=== PATIENT | female | born 1985 | race Caucasian/White ===

== ENCOUNTER 2025-01-19 22:29 | Observation (INO) ==
--- NOTE | 2025-01-19 22:50 | DR.WEAKNES ---
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 PATIENT LAST SEEN NORMAL WAS 40 MINS AGO. PATIENT WENT AND TOOK A SHOWER. AFTER SHE GOT OUT OF THE SHOWER STATES PATIENT'S HANDS BEGAN TO DRAWL UP AND HER SPEECH IS VERY DELAYED. PATIENT HAD A CVA APPROX 4 MONTHS AGO PER . Source History Provided: Family Member Mode of Arrival Mode of Arrival: In Arms Timing Onset of Chief Complaint: 01/19/25 Symptom Onset: Known Context Stroke Symptoms: Ataxia, Weakness of limb and Slurring PMH PMH Past Medical History: Yes Past Medical History: CVA and Hypertension Past Surgical History: Yes Surgical History: PIE BAKER Surgery Family History History of Family Medical Conditions: Yes Family Medical History: IN and Hypertension Social History Does patient currently use any type of tobacco product: Yes Have you used tobacco products in the last 12 months: Yes Type of Tobacco Use: Cigarettes Does any household member use tobacco: Yes Alcohol Use: Occasionally Do you use any recreational Drugs:: No Lives With: Spouse Lives Where: Home Travel Risk Coronavirus risk:travel/contact w/high risk person: No Has patient experienced Coronavirus symptoms: No Infectious screening In the last 2 months have you had wt loss of >10#?: NO Have you had fever, night sweats or hemotysis?: No Have you traveled outside the country in the last 6 months?: No Isolation: Standard ROS Review of Systems Constitutional: No Symptoms Reported Eyes: No Symptoms Reported ENTM: No Symptoms Reported Respiratoy: No Symptoms Reported Cardiovascular: No Symptoms Reported Gastrointestinal/Abdominal: No Symptoms Reported Genitourinary: No Symptoms Reported Neurological: See HPI and Weakness; negative Numbness, Paresthesia or Seizure Musculoskeletal: No Symptoms Reported Integumentary: No Symptoms Reported Hematologic/Lymphatic: No Symptoms Reported Endocrine: No Symptoms Reported Psychiatric: No Symptoms Reported Unable to Obtain Due To: Medical urgency (most info obtained from d/t pt's somnolence) PE Vital Signs Vitals: Vital Signs Temperature 97.8 F Pulse Rate 83 Pulse Rate 82 Pulse Rate 80 Pulse Rate 80 Pulse Rate 84 Pulse Rate 83 Pulse Rate 90 Pulse Rate 85 Pulse Rate 93 Pulse Rate 80 Pulse Rate 100 Respiratory Rate 22 Respiratory Rate 22 Respiratory Rate 22 Respiratory Rate 20 Respiratory Rate 28 Respiratory Rate 24 Respiratory Rate 22 Respiratory Rate 19 Respiratory Rate 22 Respiratory Rate 19 Respiratory Rate 22 Blood Pressure 139/86 Blood Pressure 137/82 Blood Pressure 134/74 Blood Pressure 155/88 Blood Pressure 143/87 Blood Pressure 186/94 O2 Sat by Pulse Oximetry 98 O2 Sat by Pulse Oximetry 98 O2 Sat by Pulse Oximetry 98 O2 Sat by Pulse Oximetry 100 O2 Sat by Pulse Oximetry 100 O2 Sat by Pulse Oximetry 100 O2 Sat by Pulse Oximetry 99 O2 Sat by Pulse Oximetry 100 O2 Sat by Pulse Oximetry 100 O2 Sat by Pulse Oximetry 99 O2 Sat by Pulse Oximetry 97 General Limitations: No Limitations General Appearance: Alert and In No Apparent Distress Head Head Exam: Normal Inspection Neck Neck Exam: Normal Inspection Chest Chest Inspection: Normal Inspection Respiratory Respiratory Exam: Normal Lung Sounds Bilat Respiratory Exam: Bilateral: Clear to Auscultation Cardiovascular Cardiovascular Exam: Regular Rate and Normal Rhythm Abdominal Exam Abdominal Exam: Normal Inspection, Normal Bowel Sounds and Soft Extremities Extremities Exam: Normal Inspection Back Back Exam: Normal Inspection Neurologic Speech: Other (dysarthria) Psychiatric Psychiatric Exam: Other (somnolent) Skin Skin Exam: Warm, Dry, Intact and Normal Color COURSE Consultation Call Returned: 01:02 (Dr Fitch accepts admission.) Critical Care Notes Total Time (mins): 30 Critical Diagnosis: dysarthria lt sided weakness hypokalemia hypomagnesemia Critical Interventions: stroke alert replacement of potassium and magnesium d/w family and tele-neurologist d/w admitting physician ROR Labs Reviewed Laboratory Results Reviewed?: Yes 01/19/25 22:57 01/19/25 22:57 Laboratory: WBC 8.5 X10^3/uL (3.6-10.0) 01/19/25 22:57 RBC 3.33 X10^6/uL (3.5-5.4) L 01/19/25 22:57 Hgb 11.2 g/dL (12.0-16.0) L 01/19/25 22:57 Hct 32.4 % (36.0-47.0) L 01/19/25 22:57 MCV 97.2 fL (80.0-100.0) 01/19/25 22:57 MCH 33.6 pg (27.0-34.0) 01/19/25 22:57 MCHC 34.6 g/dL (33.0-35.0) 01/19/25 22:57 RDW 28.6 % (11.6-16.5) H 01/19/25 22:57 Plt Count 479 X10^3/uL (150.0-450.0) H 01/19/25 22:57 Plt Count Comment Increased (ADEQUATE) A 01/19/25 22: MPV 7.4 fL (7.4-11.0) 01/19/25 22:57 Neut % (Auto) 74.5 % (42.0-75.0) 01/19/25 22:57 Lymph % (Auto) 17.3 % (21.0-51.0) L 01/19/25 22:57 [place] % (Auto) 6.6 % (0.0-13.0) 01/19/25 22:57 Eos % (Auto) 0.8 % (0.9-2.9) L 01/19/25 22:57 Baso % (Auto) 0.8 % (0.2-1.0) 01/19/25 22:57 Neut # (Auto) 6.3 x10^3/uL (2.2-4.8) H 01/19/25 22:57 Lymph # (Auto) 1.5 X10^3/uL (1.3-2.9) 01/19/25 22:57 [place] # (Auto) 0.6 x10^3/uL (0.3-0.8) 01/19/25 22:57 Eos # (Auto) 0.1 x10^3/uL (0.0-0.2) 01/19/25 22:57 Baso # (Auto) 0.1 X10^3/uL (0.0-0.1) 01/19/25 22:57 Absolute Nucleated RBC 0.4 /100WBC 01/19/25 22:57 Plt Morphology Comment Normal (NORMAL) 01/19/25 22:57 RBC Morphology Abnormal (NORMAL) A 01/19/25 22:57 Dimorphic RBCs Present 01/19/25 22:57 Anisocytosis 3+ A 01/19/25 22:57 Target Cells Present 01/19/25 22:57 Tear Drop Cells Present 01/19/25 22:57 Stomatocytes Present 01/19/25 22:57 Schistocytes Present 01/19/25 22:57 PT 12.2 SECONDS (11.8-14.3) 01/19/25 22:57 INR Target Range - 01/19/25 22:57 INR 0.89 (0.8-1.3) 01/19/25 22:57 APTT 25.4 SECONDS (22.9-36.5) 01/19/25 22:57 PTT Comment - 01/19/25 22:57 Fibrinogen 243 mg/dL (239-489) 01/19/25 22:57 Sodium 144 mmol/L (136-145) 01/19/25 22:57 Corrected Sodium TNP 01/19/25 22:57 Potassium 2.0 mmol/L (3.5-5.1) L* 01/19/25 22:57 Chloride 99 mmol/L (98-107) 01/19/25 22:57 Carbon Dioxide 31.2 mmol/L (21-32) 01/19/25 22:57 BUN 5 mg/dL (7-18) L 01/19/25 22:57 Creatinine 0.58 mg/dL (0.55-1.02) 01/19/25 22:57 Est GFR (MDRD) Af Amer > 60 (>60) 01/19/25 22:57 Est GFR (MDRD) Non-Af > 60 (>60) 01/19/25 22:57 Glucose 95 mg/dL (65-99) 01/19/25 22:57 POC Glucose (mg/dL) 106 mg/dL (65-99) H 01/19/25 23:27 Calcium 7.3 mg/dL (8.5-10.1) L 01/19/25 22:57 Corrected Calcium 8.0 mg/dL (8.5-10.1) L 01/19/25 22:57 Magnesium 1.3 mg/dL (2.0-2.9) L 01/19/25 22:57 Total Bilirubin 0.70 mg/dL (0.2-1.0) 01/19/25 22:57 AST 53 Units/L (15-37) H 01/19/25 22:57 ALT 15 Units/L (12-78) 01/19/25 22:57 Alkaline Phosphatase 169 Units/L (46-116) H 01/19/25 22:57 Creatine Kinase 84 Units/L (26-192) 01/19/25 22:57 Troponin I High Sens 17.3 ng/L (4.0-60.0) 01/19/25 22:57 Total Protein 6.2 g/dL (6.4-8.2) L 01/19/25 22:57 Albumin 3.1 g/dL (3.4-5.0) L 01/19/25 22:57 Globulin 3.1 g/dL (2.5-4.5) 01/19/25 22:57 Albumin/Globulin Ratio 1.0 Ratio (1.1-2.1) L 01/19/25 22:57 Triglycerides 155 mg/dL (0-150) H 01/19/25 22:57 Cholesterol 183 mg/dL (0-200) 01/19/25 22:57 LDL Cholesterol, Calc 37 mg/dL (0-100) 01/19/25 22:57 HDL Cholesterol 115 mg/dL (40-60) H 01/19/25 22:57 Cholesterol/HDL Ratio 1.6 (0.0-5.0) 01/19/25 22:57 Specimen Type Clean catch urine 01/19/25 23:44 Urine Color Straw (YELLOW) 01/19/25 23:44 Urine Appearance Clear (CLEAR) 01/19/25 23:44 Urine pH 7.0 (5.0 - 8.0) 01/19/25 23:44 Ur Specific [place] 1.005 (1.000-1.030) 01/19/25 23:44 Urine Protein 1+ (NEGATIVE) 01/19/25 23:44 Urine Glucose (UA) Negative (NEGATIVE) 01/19/25 23:44 Urine Ketones Negative (NEGATIVE) 01/19/25 23:44 Urine Blood Negative (NEGATIVE) 01/19/25 23:44 Urine Nitrite Negative (NEGATIVE) 01/19/25 23:44 Urine Bilirubin Negative (NEGATIVE) 01/19/25 23:44 Urine Urobilinogen Normal (NORMAL) 01/19/25 23:44 Ur Leukocyte Esterase Negative (NEGATIVE) 01/19/25 23:44 Urine RBC None seen /HPF (0-3) 01/19/25 23:44 Urine WBC 0-2 /HPF (0-5) 01/19/25 23:44 Ur Squamous Epith Cells Few /HPF (NEGATIVE) 01/19/25 23:44 Urine Bacteria Negative /HPF (NEGATIVE) 01/19/25 23:44 Ur Culture Indicated? No/not indicated 01/19/25 23:44 Urine Opiates Screen Negative (NEG=<300) 01/19/25 23:44 Urine Methadone Screen Negative (NEG=<300) 01/19/25 23:44 Ur Barbiturates Screen Negative (NEG=<200) 01/19/25 23:44 Ur Phencyclidine Scrn Negative (NEG=<25) 01/19/25 23:44 Ur Amphetamines Screen Negative (NEG=<1000) 01/19/25 23:44 U Benzodiazepines Scrn Negative (NEG=<200) 01/19/25 23:44 Urine Cocaine Screen Negative (NEG=<300) 01/19/25 23:44 U Marijuana (THC) Screen Negative (NEG=<50) 01/19/25 23:44 Ethyl Alcohol mg/dL 132 mg/dL (0-19.9) H 01/19/25 23:05 Blood Type O POSITIVE 01/19/25 22:57 Antibody Screen Negative 01/19/25 22:57 XRAY XRAY Interpreted by: Radiologist and Self X-ray Results: ct brain w/o: No acute intracranial abnormality identified. pcxr: no acute change Opioid Opioid Risk Tool Age (Tonio box if 16-45): Yes History of Preadolescent Sexual Abuse: No Total: 1 Total Score Risk Category: Low Risk Copyright: Jassi BROWN predicting aberrant behaviors Discharge Plan Diagnosis Discharge Problem: Hypokalemia, Hypomagnesemia, Left-sided weakness, Dysarthria, History of CVA (cerebrovascular accident) Alcohol intoxication Qualifiers: Complication of substance-induced condition: uncomplicated Qualified Code(s): F10.920 - Alcohol use, unspecified with intoxication, uncomplicated Discharge Plan Patient Disposition: 09 ADMITTED INPATIENT Condition: Stable
--- NOTE | 2025-01-19 23:00 | CT ---
EXAM: BRAIN W/O CON HISTORY: AFTER SHE GOT OUT OF THE SHOWER STATES PATIENT'S HANDS BEGAN TO DRAWL UP AND HER SPEECH IS VE RY DELAYED. PATIENT HAD A CVA APPROX 4 MONTHS AGO PER .; COMPARISON: July 17, 2024 TECHNIQUE: Axial non-contrast images of the head with coronal and sagittal reformats. Radiation dose: 799.04 mGy-cm total DLP FINDINGS: No abnormal areas of acute attenuation in the brain parenchyma. Small bands of encephalomalacia in the mid left centrum semiovale in the left posterior parietal lobe . Anglin-white differentiation remains intact. No intracranial, extra-axial, fluid collection. No hemorrhage. No mass, mass effect or midline shift. No ventriculomegaly. No acute fracture. Sinuses are well aerated. Mastoid air cells are well aerated. Globes and intraorbital contents are unremarkable. IMPRESSION: No acute intracranial abnormality identified. THIS IS AN ELECTRONICALLY VERIFIED FINAL REPORT 01/19/2025 10:56 PM - Electronically signed by Barrett Almanzar MD
[2025-01-19 23:17] LABS: BASOPHILS # (AUTO) 0.1 X10^3/uL (0.0-0.1); WHITE BLOOD COUNT 8.5 X10^3/uL (3.6-10.0)
[2025-01-19 23:20] LABS: BASOPHILS % (AUTO) 0.8 % (0.2-1.0); EOSINOPHILS # (AUTO) 0.1 x10^3/uL (0.0-0.2); EOSINOPHILS % (AUTO) 0.8 % (0.9-2.9); HEMATOCRIT 32.4 % (36.0-47.0); HEMOGLOBIN 11.2 g/dL (12.0-16.0); LYMPHOCYTES # (AUTO) 1.5 X10^3/uL (1.3-2.9); LYMPHOCYTES % (AUTO) 17.3 % (21.0-51.0); MEAN CORPUSCULAR HEMOGLOBIN 33.6 pg (27.0-34.0); MEAN CORPUSCULAR HGB CONC 34.6 g/dL (33.0-35.0); MEAN CORPUSCULAR VOLUME 97.2 fL (80.0-100.0); MEAN PLATELET VOLUME 7.4 fL (7.4-11.0); MONOCYTES # (AUTO) 0.6 x10^3/uL (0.3-0.8); MONOCYTES % (AUTO) 6.6 % (0.0-13.0); NEUTROPHILS # (AUTO) 6.3 x10^3/uL (2.2-4.8); NEUTROPHILS % (AUTO) 74.5 % (42.0-75.0); PLATELET COUNT 479 X10^3/uL (150.0-450.0); RED BLOOD COUNT 3.33 X10^6/uL (3.5-5.4); RED CELL DISTRIBUTION WIDTH 28.6 % (11.6-16.5)
[2025-01-19 23:21] LABS: INR 0.89 (0.8-1.3)
[2025-01-19 23:26] LABS: ALANINE AMINOTRANSFERASE 15 Units/L (12-78); ALBUMIN 3.1 g/dL (3.4-5.0); ALKALINE PHOSPHATASE 169 Units/L (46-116); ASPARTATE AMINO TRANSFERASE 53 Units/L (15-37); BLOOD UREA NITROGEN 5 mg/dL (7-18); CALCIUM 7.3 mg/dL (8.5-10.1); CARBON DIOXIDE 31.2 mmol/L (21-32); CHLORIDE 99 mmol/L (98-107); CHOL/HDL RATIO 1.6 (0.0-5.0); CHOLESTEROL 183 mg/dL (0-200); CREATINE KINASE 84 Units/L (26-192); CREATININE 0.58 mg/dL (0.55-1.02); GLUCOSE 95 mg/dL (65-99); HDL CHOLESTEROL 115 mg/dL (40-60); SODIUM 144 mmol/L (136-145); TOTAL PROTEIN 6.2 g/dL (6.4-8.2); TRIGLYCERIDES 155 mg/dL (0-150); eGFR NON BLACK RACES > 60 (>60)
--- NOTE | 2025-01-19 23:29 | EKG ---
Test Reason : possible stroke Blood Pressure : */* mmHG Vent. Rate : 87 BPM Atrial Rate : 87 BPM P-R Int : 140 ms QRS Dur : 96 ms QT Int : 426 ms P-R-T Axes : 73 10 59 degrees QTc Int : 512 ms Sinus rhythm with premature atrial complexes with aberrant conduction Nonspecific ST and T wave abnormality Prolonged QT Abnormal ECG When compared with ECG of 17-JUL-2024 14:36, Criteria for Septal infarct are no longer present ST now depressed in Lateral leads QT has lengthened Confirmed by Felix Valverde MD ([id number]) on 01/20/2025 7:29:54 AM Referred By: Confirmed By: Felix Valverde MD
[2025-01-19 23:41] LABS: PLATELET MORPHOLOGY COMMENT NORMAL (NORMAL)
[2025-01-19 23:42] LABS: ANISOCYTOSIS 3+; SCHISTOCYTES PRESENT; STOMATOCYTES PRESENT; TARGET CELLS PRESENT; TEAR DROP CELLS PRESENT
--- NOTE | 2025-01-19 23:45 | TELESTROKE ---
[facility] Consult Date of Consult Date of Exam: 01/19/25 Time of Arrival to the ED: 22:29 Allergies Allergies Allergy/AdvReac Type Severity Reaction Status Date / Time erythromycin base Allergy Verified 07/17/24 14:22 Penicillins Allergy Verified 07/17/24 14:22 Vital Signs Vital Signs: Temp Pulse Resp BP Pulse Ox O2 Del Method 01/19/25 23:30 143/87 01/19/25 23:30 85 19 100 01/19/25 23:15 93 H 22 100 01/19/25 23:01 80 19 99 01/19/25 22:29 97.8 F 100 H 22 186/94 97 Room Air History of Present Illness History of Present Illness: [facility] Patient Name:denton rosenbaum Date of :1985 Identification Number: Date of Service:01/19/2025 22:42:17 Diagnosis:R47.89 - Other speech disturbances Impression: Denton Rosenbaum is a 39 y/o F with a PMHx of HTN, tobacco use, stroke 07/19 who presents with b/l hand weakness and difficulty speaking. Differential is broad at this point and includes stroke, toxic/metabolic/infectious etiology (eg hypocalcemia causing muscle spasms). Stroke would not typically cause b/l hand problems as pt is having. Thrombolytic therapy was discussed with the patient to include potential bleeding and in approximately 6% of patients, in additional to potential rare and serious allergic reactions, however benefit includes improvement of outcome at 3 months in approximately a third of patients. After discussion, pt declined thrombolytic therapy due to risks. Our recommendations are outlined below. Recommendations: -toxic/metabolic/infectious work up -CTA head/neck while in ED. If there are any acute findings contact neurology immediately -MRI brain wo -neurochecks q4hrs -ASA 324mg once, then ASA 81mg daily -would be useful to get records from OSH to find indication that pt was on eliquis for. Pt may need to be back on eliquis senior living. If this is the case then there is no neurologic indication for antiplatelet therapy once back on eliquis -permissive HTN x 24 hrs, goal BP<220/120 -cardiac telemetry -if MRI shows acute stroke then get TTE (no need for bubble as pt already has PFO), lipid panel, Hgb A1c Advanced Imaging: Advanced Imaging Deferred because: Non-disabling symptoms as verified by the patient; no cortical signs so not consistent with LVO Metrics: Last Known Well: 01/19/2025 21:45:00 Dispatch Time: 01/19/2025 22:42:17 Arrival Time: 01/19/2025 22:29:00 Initial Response Time: 01/19/2025 22:50:02Symptoms: b/l hand weakness. Initial patient interaction: 01/19/2025 23:12:40 NIHSS Assessment Completed: 01/19/2025 23:16:27Patient is not a candidate for Thrombolytic. Thrombolytic Medical Decision: 01/19/2025 23:16:28Patient was not deemed candidate for Thrombolytic because of following reasons: Patient/Family declined . CT Head: Images were unavailable to me at the time of the exam. Radiologist was unavailable to review images. As per the radiologist report: no acute intracranial abnormality Primary Provider Notified of Diagnostic Impression and Management Plan on: 01/19/2025 23:43:42 History of Present Illness:Patient is a 39 year old Female. Patient was brought by private transportation with symptoms of b/l hand weakness. Denton Rosenbaum is a 39 y/o F with a PMHx of HTN, tobacco use, stroke 07/19 who presents with b/l hand weakness and difficulty speaking. Pt says she was showering and all of a sudden her hands clenched up b/l and she couldn't speak. Pt says it felt like her tongue was too big and she couldn't speak well. Pt endorses moderate MIX located R frontally. Pt endorses nausea. Pt endorses dizziness. Pt had stroke 07/19. She was given TNK at the time then transferred to another hospital for HLOC. Pt was told she had a PFO. Pt was put on eliquis (she doesn't know why), which she took for a month and then she stopped taking it because she ran out. Past Medical History: Hypertension Migraine Headaches There is no history of Diabetes Mellitus There is no history of Hyperlipidemia There is no history of Atrial Fibrillation Medications: No Anticoagulant use No Antiplatelet use Reviewed EMR for current medications Allergies: Reviewed Description:erythromycin, penicillin Social History: Current Employee : smokes 1ppd Smoking: Yes Alcohol Use: Yes Drug Use: No Family History: There is no family history of premature cerebrovascular disease pertinent to this consultation ROS : 14 Points Review of Systems was performed and was negative except mentioned in HPI. Past Surgical History: There Is No Surgical History Contributory To Todays Visit Examination: BP(145/95),Pulse(100),Blood Glucose(106) 1A: Level of Consciousness - Alert; keenly responsive+ 0 1B: Ask Month and Age - Both Questions Right+ 0 1C: Blink Eyes & Squeeze Hands - Performs Both Tasks+ 0 2: Test Horizontal Extraocular Movements - Normal+ 0 3: Test Visual Valadez - No Visual Loss+ 0 4: Test Facial Palsy (Use Grimace if Obtunded) - Normal symmetry+ 0 5A: Test Left Arm Motor Drift - No Drift for 10 Seconds+ 0 5B: Test Right Arm Motor Drift - No Drift for 10 Seconds+ 0 6A: Test Left Leg Motor Drift - No Drift for 5 Seconds+ 0 6B: Test Right Leg Motor Drift - No Drift for 5 Seconds+ 0 7: Test Limb Ataxia (FNF/Heel-Becerra) - No Ataxia+ 0 8: Test Sensation - Mild-Moderate Loss: Less Sharp/More Dull+ 1 9: Test Language/Aphasia - Normal; No aphasia+ 0 10: Test Dysarthria - Normal+ 0 11: Test Extinction/Inattention - No abnormality+ 0 NIHSS Score:1 NIHSS Free Text :Decreased sensation to light touch in L face, LUE, and LLE Pre-Morbid Modified [place] Scale:0 Points = No symptoms at all Spoke with :Dr. Dukes This consult was conducted in real time using interactive audio and video technology. Patient was informed of the technology being used for this visit and agreed to proceed. Patient located in hospital and provider located at home/office setting. Patient is being evaluated for possible acute neurologic impairment and high probability of imminent or life-threatening deterioration. I spent total of 43 minutes providing care to this patient, including time for face to face visit v ia telemedicine, review of medical records, imaging studies and discussion of findings with providers, the patient and/or family. Dr Sarkis Nolan [facility] For Inpatient follow-up with [facility] physician please call [facility] at . As we are not an outpatient service for any post hospital discharge needs please contact the hospital for assistance. If you have any questions for the [facility] physicians or need to reconsult for clinical or diagnostic changes please contact us via [facility] at . Medical Decision Making 01/19/25 22:57 01/19/25 22:57 Labs: Laboratory Results - last 24 hr 01/19/25 01/19/25 01/19/25 22:57 23:05 23:27 WBC 8.5 RBC 3.33 L Hgb 11.2 L Hct 32.4 L MCV 97.2 MCH 33.6 MCHC 34.6 RDW 28.6 H Plt Count 479 H Plt Count Comment Increased A MPV 7.4 Neut % (Auto) 74.5 Lymph % (Auto) 17.3 L [place] % (Auto) 6.6 Eos % (Auto) 0.8 L Baso % (Auto) 0.8 Neut # (Auto) 6.3 H Lymph # (Auto) 1.5 [place] # (Auto) 0.6 Eos # (Auto) 0.1 Baso # (Auto) 0.1 Absolute Nucleated RBC 0.4 Plt Morphology Comment Normal RBC Morphology Abnormal A Dimorphic RBCs Present Anisocytosis 3+ A Target Cells Present Tear Drop Cells Present Stomatocytes Present Schistocytes Present PT 12.2 INR Target Range - INR 0.89 APTT 25.4 PTT Comment - Fibrinogen 243 Sodium 144 Corrected Sodium TNP Potassium 2.0 L* Chloride 99 Carbon Dioxide 31.2 BUN 5 L Creatinine 0.58 Est GFR (MDRD) Af Amer > 60 Est GFR (MDRD) Non-Af > 60 Glucose 95 POC Glucose (mg/dL) 106 H Calcium 7.3 L Corrected Calcium 8.0 L Total Bilirubin 0.70 AST 53 H ALT 15 Alkaline Phosphatase 169 H Creatine Kinase 84 Troponin I High Sens 17.3 Total Protein 6.2 L Albumin 3.1 L Globulin 3.1 Albumin/Globulin Ratio 1.0 L Triglycerides 155 H Cholesterol 183 LDL Cholesterol, Calc 37 HDL Cholesterol 115 H Cholesterol/HDL Ratio 1.6 Ethyl Alcohol mg/dL 132 H
[2025-01-19] MEDS ORDERED: NS 250 ML IV 250 ML IV ONE (23:53)
[2025-01-19 23:54] LABS: BILIRUBIN,URINE NEGATIVE (NEGATIVE); BLOOD/HEMOGLOBIN,URINE NEGATIVE (NEGATIVE); GLUCOSE, URINE NEGATIVE (NEGATIVE); KETONES,URINE NEGATIVE (NEGATIVE); LEUKOCYTE ESTERASE ,URINE NEGATIVE (NEGATIVE); NITRITES,URINE NEGATIVE (NEGATIVE); PROTEIN,URINE 1+ (NEGATIVE); UROBILINOGEN,URINE NORMAL (NORMAL)
[2025-01-19] MEDS: K-RIDER 10 MEQ/100 ML WATER 10 MEQ/100 ML BAG IV ONE (23:58)
[2025-01-19] MEDS: NS 250 ML IV 250 ML IV SCH (23:58)
[2025-01-19 23:59] LABS: APPEARANCE,URINE CLEAR (CLEAR); BACTERIA,URINE NEGATIVE /HPF (NEGATIVE); COLOR,URINE STRAW (YELLOW); RBC,URINE NONE SEEN /HPF (0-3); SQUAMOUS EPITHELIAL CELL,UR FEW /HPF (NEGATIVE)
[2025-01-20] MEDS: MAGNESIUM SULFATE 1 GRAM/100 mL PREMIX 1 G/100 ML BAG IV ONE (00:56)
[2025-01-20] MEDS ORDERED: CONSULT PHARMACY - POTASSIUM & MAGNESIUM XX SCH ×2 (02:00→09:00)
[2025-01-20] MEDS: K-RIDER 10 MEQ/100 ML WATER 10 MEQ/100 ML BAG IV SCH (02:28)
[2025-01-20] MEDS: KLOR-CON PO SCH (02:28)
--- NOTE | 2025-01-20 06:52 | RAD ---
EXAM: CHEST, 1 VIEW HISTORY: weakness; COMPARISON: 07/17/2024 FINDINGS: The trachea is midline. The cardiac silhouette is unremarkable . The lungs are clear without focal infiltrate or effusion. The bony thorax is unremarkable. IMPRESSION: Normal chest THIS IS AN ELECTRONICALLY VERIFIED FINAL REPORT 01/20/2025 6:12 AM - Electronically signed by Freddie Oscar MD
[2025-01-20 07:41] LABS: ALANINE AMINOTRANSFERASE 12 Units/L (12-78); ALBUMIN 2.4 g/dL (3.4-5.0); ALKALINE PHOSPHATASE 137 Units/L (46-116); ASPARTATE AMINO TRANSFERASE 42 Units/L (15-37); BLOOD UREA NITROGEN 5 mg/dL (7-18); CARBON DIOXIDE 35.1 mmol/L (21-32); CHLORIDE 103 mmol/L (98-107); COR CA(FOR HYPOALB) 8.3 mg/dL (8.5-10.1); CREATININE 0.49 mg/dL (0.55-1.02); GLUCOSE 105 mg/dL (65-99); SODIUM 143 mmol/L (136-145); eGFR NON BLACK RACES > 60 (>60)
[2025-01-20 08:13] LABS: BASOPHILS # (AUTO) 0.1 X10^3/uL (0.0-0.1); BASOPHILS % (AUTO) 1.2 % (0.2-1.0); EOSINOPHILS # (AUTO) 0.1 x10^3/uL (0.0-0.2); EOSINOPHILS % (AUTO) 1.2 % (0.9-2.9); HEMATOCRIT 27.7 % (36.0-47.0); HEMOGLOBIN 9.4 g/dL (12.0-16.0); LYMPHOCYTES # (AUTO) 1.8 X10^3/uL (1.3-2.9); LYMPHOCYTES % (AUTO) 27.9 % (21.0-51.0); MEAN CORPUSCULAR HEMOGLOBIN 32.9 pg (27.0-34.0); MEAN CORPUSCULAR HGB CONC 33.8 g/dL (33.0-35.0); MEAN CORPUSCULAR VOLUME 97.3 fL (80.0-100.0); MEAN PLATELET VOLUME 7.3 fL (7.4-11.0); MONOCYTES # (AUTO) 0.5 x10^3/uL (0.3-0.8); MONOCYTES % (AUTO) 7.2 % (0.0-13.0); NEUTROPHILS # (AUTO) 3.9 x10^3/uL (2.2-4.8); NEUTROPHILS % (AUTO) 62.5 % (42.0-75.0); PLATELET COUNT 396 X10^3/uL (150.0-450.0); RED BLOOD COUNT 2.85 X10^6/uL (3.5-5.4); RED CELL DISTRIBUTION WIDTH 28.4 % (11.6-16.5); WHITE BLOOD COUNT 6.3 X10^3/uL (3.6-10.0)
[2025-01-20 08:32] LABS: ANISOCYTOSIS 3+; PLATELET MORPHOLOGY COMMENT NORMAL (NORMAL); POTASSIUM 2.3 mmol/L (3.5-5.1); STOMATOCYTES SLIGHT; TARGET CELLS SLIGHT; TEAR DROP CELLS SLIGHT
[2025-01-20] MEDS: TYLENOL 325 MG TAB PO PRN (08:36)
[2025-01-20] MEDS: ECOTRIN TAB 325 MG PO SCH (08:36)
[2025-01-20] MEDS: PLAVIX PO SCH (08:36)
[2025-01-20] MEDS: NS IV ONE (08:37)
[2025-01-20] MEDS: MVI IV ONE (08:37)
[2025-01-20] MEDS: [UNRECOGNIZED DRUG - OTHER] IV ONE (08:37)
--- NOTE | 2025-01-20 12:32 | DR.H&P ---
H&P History & Physical for Day of: H&P Date: 01/20/25 Chief Complaint Chief Complaint: LEFT SIDE WEAKNESS History of Present Illness History of Present Illness: PT IS 39 WF, ER ADMISSION AFTER PRESENTING WITH SPOUSE WITH CO SUDDEN ONSET LEFT SIDE WEAKNESS. PT SPOUSE REPORTS SHE HAD A STROKE IN JUNE. PT REPORTS RECENTLY STOPPED TAKING ELIQUIS. PT REPORTS HX OF HYPOKALEMIA IN THE PAST AND SHE CO DIARRHEA FOR SEVERAL MONTHS. PT HAD CT HEAD AND CXR IN ER ON ADMISSION, TELENEURO IN ER ON ADMISSION. Past Medical History Past Medical History: CVA and Hypertension Past Surgical History Surgical History: ORNAMENTAL METAL ERECTOR Surgery Family History Family Medical History: Cancer and IA Social History Does patient currently use any type of tobacco product: Yes Have you used tobacco products in the last 12 months: Yes Type of Tobacco Use: Cigarettes How many years tobacco product used: 20 Does any household member use tobacco: Yes Alcohol Use: DAILY Drug Use: None Medications Home Medications: Home Medications Medication Instructions Recorded Confirmed Type NK 07/17/24 01/20/25 History Allergies Allergies Allergy/AdvReac Type Severity Reaction Status Date / Time erythromycin base Allergy Verified 07/17/24 14:22 Penicillins Allergy Verified 07/17/24 14:22 Labs 01/20/25 05:26 01/20/25 05:26 Labs: Laboratory WBC 6.3 X10^3/uL (3.6-10.0) 01/20/25 05:26 RBC 2.85 X10^6/uL (3.5-5.4) L 01/20/25 05:26 Hgb 9.4 g/dL (12.0-16.0) L 01/20/25 05:26 Hct 27.7 % (36.0-47.0) L 01/20/25 05:26 MCV 97.3 fL (80.0-100.0) 01/20/25 05:26 MCH 32.9 pg (27.0-34.0) 01/20/25 05:26 MCHC 33.8 g/dL (33.0-35.0) 01/20/25 05:26 RDW 28.4 % (11.6-16.5) H 01/20/25 05:26 Plt Count 396 X10^3/uL (150.0-450.0) 01/20/25 05:26 Plt Count Comment Adequate (ADEQUATE) 01/20/25 05:26 MPV 7.3 fL (7.4-11.0) L 01/20/25 05:26 Neut % (Auto) 62.5 % (42.0-75.0) 01/20/25 05:26 Lymph % (Auto) 27.9 % (21.0-51.0) 01/20/25 05:26 [place] % (Auto) 7.2 % (0.0-13.0) 01/20/25 05:26 Eos % (Auto) 1.2 % (0.9-2.9) 01/20/25 05:26 Baso % (Auto) 1.2 % (0.2-1.0) H 01/20/25 05:26 Neut # (Auto) 3.9 x10^3/uL (2.2-4.8) 01/20/25 05:26 Lymph # (Auto) 1.8 X10^3/uL (1.3-2.9) 01/20/25 05:26 [place] # (Auto) 0.5 x10^3/uL (0.3-0.8) 01/20/25 05:26 Eos # (Auto) 0.1 x10^3/uL (0.0-0.2) 01/20/25 05:26 Baso # (Auto) 0.1 X10^3/uL (0.0-0.1) 01/20/25 05:26 Absolute Nucleated RBC 0.3 /100WBC 01/20/25 05:26 Plt Morphology Comment Normal (NORMAL) 01/20/25 05:26 RBC Morphology Abnormal (NORMAL) A 01/20/25 05:26 Dimorphic RBCs Present 01/19/25 22:57 Anisocytosis 3+ A 01/20/25 05:26 Target Cells Slight A 01/20/25 05:26 Tear Drop Cells Slight A 01/20/25 05:26 Stomatocytes Slight A 01/20/25 05:26 Schistocytes Present 01/19/25 22:57 PT 12.2 SECONDS (11.8-14.3) 01/19/25 22:57 INR Target Range - 01/19/25 22:57 INR 0.89 (0.8-1.3) 01/19/25 22:57 APTT 25.4 SECONDS (22.9-36.5) 01/19/25 22:57 PTT Comment - 01/19/25 22:57 Fibrinogen 243 mg/dL (239-489) 01/19/25 22:57 Sodium 143 mmol/L (136-145) 01/20/25 05:26 Corrected Sodium TNP 01/20/25 05:26 Potassium 2.3 mmol/L (3.5-5.1) L* 01/20/25 05:26 Chloride 103 mmol/L (98-107) 01/20/25 05:26 Carbon Dioxide 35.1 mmol/L (21-32) H 01/20/25 05:26 BUN 5 mg/dL (7-18) L 01/20/25 05:26 Creatinine 0.49 mg/dL (0.55-1.02) L 01/20/25 05:26 Est GFR (MDRD) Af Amer > 60 (>60) 01/20/25 05:26 Est GFR (MDRD) Non-Af > 60 (>60) 01/20/25 05:26 Glucose 105 mg/dL (65-99) H 01/20/25 05:26 POC Glucose (mg/dL) 106 mg/dL (65-99) H 01/19/25 23:27 Calcium 7.0 mg/dL (8.5-10.1) L 01/20/25 05:26 Corrected Calcium 8.3 mg/dL (8.5-10.1) L 01/20/25 05:26 Magnesium 1.6 mg/dL (2.0-2.9) L 01/20/25 05:26 Total Bilirubin 0.60 mg/dL (0.2-1.0) 01/20/25 05:26 AST 42 Units/L (15-37) H 01/20/25 05:26 ALT 12 Units/L (12-78) 01/20/25 05:26 Alkaline Phosphatase 137 Units/L (46-116) H 01/20/25 05:26 Creatine Kinase 84 Units/L (26-192) 01/19/25 22:57 Troponin I High Sens 17.3 ng/L (4.0-60.0) 01/19/25 22:57 Total Protein 5.0 g/dL (6.4-8.2) L 01/20/25 05:26 Albumin 2.4 g/dL (3.4-5.0) L 01/20/25 05:26 Globulin 2.6 g/dL (2.5-4.5) 01/20/25 05: Albumin/Globulin Ratio 0.9 Ratio (1.1-2.1) L 01/20/25 05:26 Triglycerides 155 mg/dL (0-150) H 01/19/25 22:57 Cholesterol 183 mg/dL (0-200) 01/19/25 22:57 LDL Cholesterol, Calc 37 mg/dL (0-100) 01/19/25 22:57 HDL Cholesterol 115 mg/dL (40-60) H 01/19/25 22:57 Cholesterol/HDL Ratio 1.6 (0.0-5.0) 01/19/25 22:57 Specimen Type Clean catch urine 01/19/25 23:44 Urine Color Straw (YELLOW) 01/19/25 23:44 Urine Appearance Clear (CLEAR) 01/19/25 23:44 Urine pH 7.0 (5.0 - 8.0) 01/19/25 23:44 Ur Specific [place] 1.005 (1.000-1.030) 01/19/25 23:44 Urine Protein 1+ (NEGATIVE) 01/19/25 23:44 Urine Glucose (UA) Negative (NEGATIVE) 01/19/25 23:44 Urine Ketones Negative (NEGATIVE) 01/19/25 23:44 Urine Blood Negative (NEGATIVE) 01/19/25 23:44 Urine Nitrite Negative (NEGATIVE) 01/19/25 23:44 Urine Bilirubin Negative (NEGATIVE) 01/19/25 23:44 Urine Urobilinogen Normal (NORMAL) 01/19/25 23:44 Ur Leukocyte Esterase Negative (NEGATIVE) 01/19/25 23:44 Urine RBC None seen /HPF (0-3) 01/19/25 23:44 Urine WBC 0-2 /HPF (0-5) 01/19/25 23:44 Ur Squamous Epith Cells Few /HPF (NEGATIVE) 01/19/25 23:44 Urine Bacteria Negative /HPF (NEGATIVE) 01/19/25 23:44 Ur Culture Indicated? No/not indicated 01/19/25 23:44 Urine Opiates Screen Negative (NEG=<300) 01/19/25 23:44 Urine Methadone Screen Negative (NEG=<300) 01/19/25 23:44 Ur Barbiturates Screen Negative (NEG=<200) 01/19/25 23:44 Ur Phencyclidine Scrn Negative (NEG=<25) 01/19/25 23:44 Ur Amphetamines Screen Negative (NEG=<1000) 01/19/25 23:44 U Benzodiazepines Scrn Negative (NEG=<200) 01/19/25 23:44 Urine Cocaine Screen Negative (NEG=<300) 01/19/25 23:44 U Marijuana (THC) Screen Negative (NEG=<50) 01/19/25 23:44 Ethyl Alcohol mg/dL 132 mg/dL (0-19.9) H 01/19/25 23:05 Blood Type O POSITIVE 01/19/25 22:57 Antibody Screen Negative 01/19/25 22:57 Review of Systems Constitutional: Weakness Eyes: No Symptoms Reported ENT: No Symptoms Reported Respiratory: No Symptoms Reported Cardiovascular: No Symptoms Reported Gastrointestinal: Diarrhea Genitourinary: No Symptoms Reported Musculoskeletal: Other (MUSCLE CRAMPS, MUSCLE WEAKNESS) Skin: No Symptoms Reported Neurological: Weakness and Change in Speech (PER SPOUSE) Physical Exam Vital Signs: Vital Signs Temperature 98.2 F Pulse Rate [Left Radial] 89 Respiratory Rate 20 Respiratory Rate 17 Respiratory Rate 20 Blood Pressure [Left Arm] 121/66 O2 Sat by Pulse Oximetry 95 Oriented: Normal Eyes: Normal Ear: Normal Nose: Normal Throat: Dry Respiratory: RLL Diminished and LLL Diminished Cardiovascular: Tachycardia Auscultation: Bowel Sounds: Normal Palpation: Normal Tenderness: LUQ Skin: Decreased [place] Musculoskeletal: Motor Deficit Mood Description: Anxious Speech Pattern: Clear and Appropriate Assessment/Plan (1) Left-sided weakness: Status: Acute Plan: ADMIT, TELENEURO ASSESSMENT ON ADMISSION IN ER BP CONTROL AND CARDIAC MONITORING IV HYDRATION ELECTROLYTE REPLACEMENT THERAPY (2) Hypokalemia: Status: Acute (3) Hypomagnesemia: Status: Acute (4) Alcohol intoxication: Qualifiers: Complication of substance-induced condition: uncomplicated Qualified Code(s): F10.920 - Alcohol use, unspecified with intoxication, uncomplicated Status: Acute
[2025-01-20] MEDS: VISTARIL PO PRN (15:44)
[2025-01-20 15:57] LABS: CRYPTOSPORIDIUM PARVUM ANTIGEN NEGATIVE (NEGATIVE); GIARDIA LAMBLIA ANTIGEN NEGATIVE (NEGATIVE)
--- NOTE | 2025-01-20 15:58 | CT ---
EXAM: CTA CAROTID/NECK HISTORY: Left-sided weakness. Dysarthria. History of CVA. TECHNIQUE: Spiral axial CT images are obtained through the neck from the skull base to the thoracic inlet with the administration of intravenous contrast. Sagittal and coronal reformatted images were reconstructed. 2-D and 3-D MIP vascular images are reformatted. 3D color vascular images are reformatted. Evaluation for stenosis performed by employing NASCET criteria. COMPARISON: None available. FINDINGS: There is asymmetrical enhancement of the right cavernous sinus with attenuation similar to that of the right carotid siphon/internal carotid artery, and similar to than that of the transverse sinus; equivocal finding; cannot rule out right carotiocavernous sinus fistula. Axial image 151-158, series 5; coronal image 110-136, series 6. Correlation with dedicated cerebral angiography (gold standard) may be beneficial for further characterization of the region. No evidence for atherosclerotic disease is seen. There is no discernible ICA or ECA stenosis or occlusion seen. Both common carotid arteries are widely patent. Both vertebral arteries are patent with antegrade blood flow. Normal great vessel branch anatomy is seen at the aortic arch. IMPRESSION: 1. No discernible arterial stenosis or arterial occlusion seen. 2. No gross arterial dissection or aneurysmal dilatation noted. 3. Patent vertebral arteries (left vertebral artery dominance). 4. Asymmetrical enhancement of the right cavernous sinus with attenuation similar to that of the right carotid siphon/internal carotid artery, and similar to than that of the transverse sinus; equivocal finding; cannot rule out right carotiocavernous sinus fistula. Axial image 151-158, series 5; coronal image 110-136, series 6. 5. Correlation with dedicated cerebral angiography (gold standard) may be beneficial for further characterization of the region. THIS IS AN ELECTRONICALLY VERIFIED FINAL REPORT 01/20/2025 3:48 PM - Electronically signed by Geovanna Barr MD
--- NOTE | 2025-01-20 16:18 | CT ---
EXAM: HEAD CT WITHOUT INTRAVENOUS CONTRAST HISTORY: Left-sided weakness. Dysarthria. History of CVA. TECHNIQUE: Spiral axial CT images are obtained through the brain without the administration of intravenous contrast. Additional sagittal and coronal reformatted images are reconstructed. COMPARISON: Head CT dated January 19, 2025. FINDINGS: There are stable appearing multifocal faint parenchymal lucencies within the left posterior frontal and parietal lobe subcortical white matter tracts; DDx includes late subacute (or chronic) left MCA territory infarctions in the appropriate clinical setting. Axial image 17-26, series 5. The centrum semiovale, basal ganglia, cerebellum, and brainstem are otherwise grossly unremarkable for a noncontrast CT scan. There is no acute intracranial hemorrhage, new parenchymal infarction, mass lesion, midline shift, or hydrocephalus seen. No extra-axial mass or abnormal fluid collection is seen. The calvarium is intact. The partially imaged paranasal sinuses, middle ear cavities, and mastoid air cells are clear. IMPRESSION: 1. Stable appearing multifocal faint parenchymal lucencies within the left posterior frontal and parietal lobe subcortical white matter tracts; DDx includes late subacute (or chronic) left MCA territory infarctions in the appropriate clinical setting. Axial image 17-26, series 5. 2. No intracranial hemorrhage, mass lesions, midline shift, mass effect or hydrocephalus seen. 3. Consider followup evaluation with MRI/MRA imaging for further assessment as clinically warranted. EXAM: CTA HEAD HISTORY: Left-sided weakness. Dysarthria. History of CVA. TECHNIQUE: Spiral axial CT images are obtained through the brain with the administration of intravenous contrast. Sagittal and coronal reformatted images were reconstructed. 2-D and 3-D MIP vascular images were reformatted. Evaluation for carotid stenosis performed by implying NASCET criteria. COMPARISON: None available. FINDINGS: There is asymmetrical enhancement of the right cavernous sinus with attenuation similar to that of the right carotid siphon/internal carotid artery, and similar to than that of the transverse sinus; equivocal finding; cannot rule out right carotiocavernous sinus fistula. Axial image 24-36, series 3; coronal image 121- 144, series 4. Correlation with dedicated cerebral angiography (gold standard) may be beneficial for further characterization of the region. The [place] is intact. There is no cerebral aneurysm or dissection seen. No hemodynamically significant arterial stenosis or occlusion involving the anterior cerebral arteries, middle cerebral arteries, and posterior cerebral arteries seen. The basilar artery and distal vertebral arteries are within normal limits. The visualized internal cerebral veins, emissary veins, and dural venous sinuses are patent. IMPRESSION: 1. No discernible arterial stenosis or occlusion seen. 2. No gross cerebral aneurysm or dissection seen. 3. The dural venous sinuses and emissary veins are patent. 4. Asymmetrical enhancement of the right cavernous sinus with attenuation similar to that of the right carotid siphon/internal carotid artery, and similar to than that of the transverse sinus; equivocal finding; cannot rule out right carotiocavernous sinus fistula. Axial image 24-36, series 3; coronal image 121- 144, series 4. 5. Correlation with dedicated cerebral angiography (gold standard) may be beneficial for further characterization of the region. THIS IS AN ELECTRONICALLY VERIFIED FINAL REPORT 01/20/2025 4:14 PM - Electronically signed by Geovanna Barr MD
--- NOTE | 2025-01-20 17:14 | MRI ---
EXAM: BRAIN W&W/O CON HISTORY: HEADACHES, HX OF STROKE ; COMPARISON: None. TECHNIQUE: Non-contrast MRI images of the brain were obtained utilizing a routine protocol. FINDINGS: Patchy areas of increased T2 signal in the left frontal, mid left parietal, posterior left parietal and left occipital lobes. Tiny foci of increased T2 signal in the left basal ganglia/awan radiata and in the splenium of the corpus callosum. No evidence of restricted diffusion. No abnormal enhancement. No abnormal signal in the dural sinuses on the sagittal T1 sequence. Pituitary gland and stalk appear normal. No mass effect on the optic chiasm. No Chiari 1 malformation. Imaged portion of the spine and spinal cord appear grossly normal. No restricted diffusion. Flow voids appear normal on the T2 sequence. No intracranial, extra-axial, fluid collection. No mass, mass effect or midline shift. No blooming artifact in the brain parenchyma. Sinuses are well aerated Mastoid air cells are well aerated. Globes and intra-orbital contents appear normal. No ventriculomegaly. IMPRESSION: Patchy areas of increased T2 signal in the left frontal, mid left parietal, posterior left parietal and left occipital lobes. Tiny foci of increased T2 signal in the left basal ganglia/awan radiata and in the splenium of the corpus callosum. No evidence of restricted diffusion to suggest acute ischemia. No abnormal enhancement. Differential diagnosis includes posterior reversible encephalopathy syndrome, demyelinating process as well as a viral infectious process. THIS IS AN ELECTRONICALLY VERIFIED FINAL REPORT 01/20/2025 5:11 PM - Electronically signed by Barrett Almanzar MD
[2025-01-20] MEDS: [UNRECOGNIZED DRUG - OTHER] IV SCH (18:45)
[2025-01-20] MEDS: NS IV SCH (18:45)
[2025-01-20] MEDS: MVI IV SCH (18:45)
[2025-01-20] MEDS: VALIUM INJ IVP PRN (23:13)
[2025-01-21 05:43] LABS: BASOPHILS # (AUTO) 0.1 X10^3/uL (0.0-0.1); EOSINOPHILS # (AUTO) 0.2 x10^3/uL (0.0-0.2); HEMATOCRIT 25.1 % (36.0-47.0); HEMOGLOBIN 8.4 g/dL (12.0-16.0); LYMPHOCYTES # (AUTO) 2.3 X10^3/uL (1.3-2.9); LYMPHOCYTES % (AUTO) 40.7 % (21.0-51.0); MEAN CORPUSCULAR HEMOGLOBIN 32.8 pg (27.0-34.0); MEAN CORPUSCULAR HGB CONC 33.4 g/dL (33.0-35.0); MEAN CORPUSCULAR VOLUME 98.2 fL (80.0-100.0); MEAN PLATELET VOLUME 7.4 fL (7.4-11.0); MONOCYTES # (AUTO) 0.3 x10^3/uL (0.3-0.8); MONOCYTES % (AUTO) 6.1 % (0.0-13.0); NEUTROPHILS # (AUTO) 2.7 x10^3/uL (2.2-4.8); NEUTROPHILS % (AUTO) 48.2 % (42.0-75.0); PLATELET COUNT 375 X10^3/uL (150.0-450.0); RED BLOOD COUNT 2.55 X10^6/uL (3.5-5.4); RED CELL DISTRIBUTION WIDTH 27.6 % (11.6-16.5); WHITE BLOOD COUNT 5.7 X10^3/uL (3.6-10.0)
[2025-01-21 05:55] LABS: ALANINE AMINOTRANSFERASE 13 Units/L (12-78); ALKALINE PHOSPHATASE 141 Units/L (46-116); ASPARTATE AMINO TRANSFERASE 42 Units/L (15-37); BLOOD UREA NITROGEN 3 mg/dL (7-18); CALCIUM 6.8 mg/dL (8.5-10.1); CARBON DIOXIDE 24.6 mmol/L (21-32); CHLORIDE 108 mmol/L (98-107); COR CA(FOR HYPOALB) 8.4 mg/dL (8.5-10.1); CREATININE 0.52 mg/dL (0.55-1.02); GLUCOSE 98 mg/dL (65-99); MAGNESIUM 2.5 mg/dL (2.0-2.9); SODIUM 142 mmol/L (136-145); TOTAL PROTEIN 4.8 g/dL (6.4-8.2); eGFR NON BLACK RACES > 60 (>60)
[2025-01-21 05:58] LABS: POTASSIUM 2.7 mmol/L (3.5-5.1)
[2025-01-21 06:52] LABS: ANISOCYTOSIS 3+; PLATELET MORPHOLOGY COMMENT NORMAL (NORMAL)
[2025-01-21 06:53] LABS: STOMATOCYTES SLIGHT; TARGET CELLS SLIGHT; TEAR DROP CELLS SLIGHT
[2025-01-21] MEDS ORDERED: CONSULT PHARMACY - POTASSIUM & MAGNESIUM XX SCH (08:00)
[2025-01-21] MEDS: KLOR-CON PO SCH (09:21)
[2025-01-21] MEDS: VISBIOME PROBIOTIC CAP 112.5 B or equivalent PO SCH (09:21)
[2025-01-21] MEDS: PROTONIX TAB 40 MG PO SCH (09:21)
[2025-01-21 18:00] LABS: CRYPTOSPORIDIUM PARVUM ANTIGEN NEGATIVE (NEGATIVE); GIARDIA LAMBLIA ANTIGEN NEGATIVE (NEGATIVE)
[2025-01-21 20:00] VITALS: BMI 19.5
[2025-01-22 04:28] VITALS: O2SAT 99
[2025-01-22 05:43] LABS: BASOPHILS % (AUTO) 0.2 % (0.2-1.0); EOSINOPHILS # (AUTO) 0.2 x10^3/uL (0.0-0.2); EOSINOPHILS % (AUTO) 4.1 % (0.9-2.9); HEMATOCRIT 26.7 % (36.0-47.0); HEMOGLOBIN 8.9 g/dL (12.0-16.0); LYMPHOCYTES # (AUTO) 2.3 X10^3/uL (1.3-2.9); LYMPHOCYTES % (AUTO) 39.3 % (21.0-51.0); MEAN CORPUSCULAR HEMOGLOBIN 33.2 pg (27.0-34.0); MEAN CORPUSCULAR HGB CONC 33.3 g/dL (33.0-35.0); MEAN CORPUSCULAR VOLUME 99.8 fL (80.0-100.0); MEAN PLATELET VOLUME 7.3 fL (7.4-11.0); MONOCYTES # (AUTO) 0.4 x10^3/uL (0.3-0.8); MONOCYTES % (AUTO) 6.3 % (0.0-13.0); NEUTROPHILS % (AUTO) 50.1 % (42.0-75.0); PLATELET COUNT 362 X10^3/uL (150.0-450.0); RED BLOOD COUNT 2.67 X10^6/uL (3.5-5.4); RED CELL DISTRIBUTION WIDTH 26.7 % (11.6-16.5); WHITE BLOOD COUNT 5.9 X10^3/uL (3.6-10.0)
[2025-01-22 05:57] LABS: PLATELET MORPHOLOGY COMMENT NORMAL (NORMAL)
[2025-01-22 05:58] LABS: ANISOCYTOSIS 3+; HYPOCHROMASIA SLIGHT; POIKILOCYTOSIS SLIGHT; STOMATOCYTES SLIGHT; TARGET CELLS SLIGHT; TEAR DROP CELLS SLIGHT
[2025-01-22 06:01] LABS: ALANINE AMINOTRANSFERASE 16 Units/L (12-78); ALBUMIN 2.2 g/dL (3.4-5.0); ALKALINE PHOSPHATASE 147 Units/L (46-116); ASPARTATE AMINO TRANSFERASE 46 Units/L (15-37); BLOOD UREA NITROGEN 2 mg/dL (7-18); CARBON DIOXIDE 23.5 mmol/L (21-32); CHLORIDE 110 mmol/L (98-107); COR CA(FOR HYPOALB) 8.4 mg/dL (8.5-10.1); CREATININE 0.38 mg/dL (0.55-1.02); GLUCOSE 85 mg/dL (65-99); POTASSIUM 3.7 mmol/L (3.5-5.1); SODIUM 141 mmol/L (136-145); TOTAL PROTEIN 5.2 g/dL (6.4-8.2); eGFR NON BLACK RACES > 60 (>60)
[2025-01-22] MEDS: OMNIPAQUE 350 mg/mL 100 mL BTL 100 ML ONE (08:30)
[2025-01-22] MEDS: MULTIHANCE INJ VIAL ONE (08:31)
[2025-01-22 08:48] LABS: CHOL/HDL RATIO 1.5 (0.0-5.0)
[2025-01-22 09:07] VITALS: BP 160/80; PULSE 72; RESP 18; TEMP 97.9
== END 2025-01-22 11:35 | disposition home or self-care (01) ==
LOC: ER 22:29 → MED/SURG 22:29
PROVIDERS: ADMIT Internal Medicine; ATTEND Internal Medicine